=== PATIENT | female | born 1980 | race Asian ===

== ENCOUNTER → 2016-08-20 | Outpatient (CLI) | payer OTHER ==
--- NOTE | 2016-08-20 13:22 | RAD ---
Examination: Ultrasound pelvis History: History of pelvic pain. Comparison: None available Technique: Transabdominal, transvaginal ultrasound of the pelvis. Findings: The uterus measures 8.8 x 5.2 x 5.4 cm. The endometrium measures 1.9 mm. Intrauterine contraceptive device is identified in the endometrium with small amount of fluid adjacent to the endometrium. The right ovary measures 3.1 x 1.7 x 2.9 cm. The left ovary measures 2.8 x 2.4 x 2.2 cm. Blood flow identified in the right and left ovaries. There is small amount of free fluid identified within the cul-de-sac. Impression: Intrauterine contraceptive device is identified in the endometrium with small amount of fluid adjacent to the endometrium.
--- NOTE | 2016-08-20 13:56 | RAD ---
DATE: 08/20/2016 EXAM: DIGITAL DIAGNOSTIC BILATERAL, BREAST LEFT HISTORY: Left breast lump COMPARISON: None available This study was interpreted with the benefit of Computerized Aided Detection (CAD ). FINDINGS: Breast Density: DENSE The breast Parenchyma is dense, which could reduce the sensitivity of mammography. Breast parenchyma level density D.. There is a asymmetry identified in the right inferior breast, seen on the MLO view, which spreads out on the spot compression view suggesting overlap of breast tissue. ] On the left breast demonstrated no definite evidence of mass or lesion. Dense tissue identified in the region where patient feels a lump. IMPRESSION: Benign findings BI-RADS CATEGORY: 2 BENIGN FINDING RECOMMENDED FOLLOW-UP: Clinical follow-up is recommended. PQRS compliance statement: Patient information was entered into a reminder system with a target due date when the patient is due for a screening mammogram for the next mammogram. Mammography is a sensitive method for finding small breast cancers, but it does not detect them all and is not a substitute for careful clinical examination. A negative mammogram does not negate a clinically suspicious finding and should not result in delay in biopsying a clinically suspicious abnormality. "Our facility is accredited by the [employer] Mammography Program." [email or web address]
== END | disposition home or self-care (01) ==
LOC: MAMMO 09:52
PROVIDERS: ATTEND Family Medicine
DX: T83.39XA Other mechanical complication of intrauterine contraceptive device, initial encounter (principal); N63 Unspecified lump in breast; R10.2 Pelvic and perineal pain
CPT/HCPCS: 76641; 76830; 76856; G0204; 77066

== ENCOUNTER → 2017-06-27 | Outpatient (CLI) | payer OTHER | END | disposition home or self-care (01) | LOC: SPEC 16:08 | DX: Z01.419 Encounter for gynecological examination (general) (routine) without abnormal findings (principal) | CPT/HCPCS: 88175 ==